=== PATIENT | male | born 2000 | race Hispanic/Latino ===

== ENCOUNTER 2020-03-05 10:58 | Emergency (ER) | payer SELFPAY ==
[~2020-03-05] VITALS: Ht 167.6 cm; Wt 90.7 kg
[~2020-03-05 10:58] MED LIST: BACITRACIN/POLYMYXIN 30 GM OINT TP SCH
[2020-03-05] MEDS ORDERED: LIDOCAINE HCL 1% LOCAL INJ 20 ML VIAL INJ ONE (11:15)
--- NOTE | 2020-03-05 12:08 | Diagnostic Imaging Report ---
Exam: Right hand radiographs - three views History: Laceration. Comparison: None. Findings: No evidence of acute fracture or dislocation. Mild soft tissue edema in the hand. There is a mild flexion deformity with mild volar subluxation of the small finger middle phalanx in relation to the proximal phalanx. Recommend clinical correlation. Signed by: Dr. Tim Valdez MD on 03/05/2020 12:05 PM
--- OUTSIDE RECORDS SUMMARY | 2020-03-05 13:20 | XMS REPORT | Continuity of Care Document ---
Author Author [facility] t Organization [facility] Address [address] [place] [id number] Phone Unavailable Care Team Providers Care Navigation Teacher Name Role Phone Lisa MCKEON Attphys Unavailable Problems This patient has no known problems. Allergies, Adverse Reactions, Alerts This patient has no known allergies or adverse reactions. Medications This patient has no known medications. Procedures This patient has no known procedures. Results Test Description Test Time Test Comments Results Result Comments Source HAND 3+ VIEWS LEFT 2020-03-05 12:02:00 [facility] 2000 Sex: M [place] [id number] Patient Name: UDAY SHAY MR #: [id number] : 2000 Age/Sex: 19/M Req #: [id number] [facility] Physician: Ordered by: CORY MCKEON MD Report #: [id number] Location: ER Room/Bed: Procedure: [id number] DX/HAND 3+ VIEWS LEFT Exam Date: 03/05/20 Exam Time: 1130 REPORT STATUS: Signed Exam: Right hand radiographs - three views History: Laceration. Comparison: None. Findings: No evidence of acute fracture or dislocation. Mild soft tissue edema in the hand. There is a mild flexion deformity with mild volar subluxation of the small finger middle phalanx in relation to the proximal phalanx. Recommend clinical correlation. Signed by: Dr. Desirae Guillen MD on 03/05/2020 12:05 PM Dictated By: DESIRAE GUILLEN MD 04 Transcribed By: JAVI on 03/05/201204 COPY TO: CORY MCKEON MD
--- NOTE | 2020-03-05 14:24 | Emergency Department Note ---
History of Present Illnes History of Present Illness Chief Complaint: Laceration History of Present Illness This is a 19 year old male LEFT THUMB LACERATION WITH KNIFE THAT HE WAS OPENING A BOX WITH, NO ACTIVE BLEEDING. ACCIDENTALLY CUT WITH KITCHEN KNIFE. 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 Any updates have been documented here. Past Medical History Recent Fever: No Clinical Suspicion of Infectio: No New/Unexplained Change in Ment: No Past Medical History: None Past Surgical History: None Other Surgery: UPPER LIP Social History Smoking Cessation: Current some day smoker Counseling Performed: No Alcohol Use: Social Any Illegal Drug Use: No TB Exposure/Symptoms: No Physically hurt or threatened: No Family History Family history of heart diseas: No Other Last Tetanus: UNK Any Pre-Existing Lines (PICC,: No Review of Systems Review of Systems Constitutional: Reports no symptoms EENTM: Reports no symptoms Cardiovascular: Reports no symptoms Respiratory: Reports no symptoms Gastrointestinal: Reports no symptoms Genitourinary: Reports no symptoms Musculoskeletal: Reports no symptoms Integumentary: Reports as per HPI Neurological: Reports no symptoms Psychological: Reports no symptoms Endocrine: Reports no symptoms Hematological/Lymphatic: Reports no symptoms Physical Exam Related Data Allergies: Coded Allergies: Pork/Porcine Containing Products (Verified Allergy, Unknown, 03/05/20) Uncoded Allergies: PORK (Allergy, Unknown, 03/05/20) Triage Vital Signs Vital Signs Date Time Temp Pulse Resp B/P (MAP) Pulse Ox O2 Delivery O2 Flow Rate FiO2 03/05/20 11:10 98.8 70 18 110/69 100 Room Air Vital signs reviewed: Yes Physical Exam CONSTITUTIONAL Constitutional: Present well-developed, Present well-nourished HENT HENT: Present normocephalic, Present atraumatic, Present oropharynx clear/moist, Present nose normal HENT L/R: Present left ext ear normal, Present right ext ear normal EYES Eyes: Reports PERRL, Reports conjunctivae normal NECK Neck: Present ROM normal PULMONARY Pulmonary: Present effort normal, Present breath sounds normal CARDIOVASCULAR Cardiovascular: Present regular rhythm, Present heart sounds normal, Present capillary refill normal, Present normal rate GASTROINTESTINAL Abdominal: Present soft, Present nontender, Present bowel sounds normal GENITOURINARY Genitourinary: Present exam deferred SKIN Skin: Present warm, Present dry, Present other (2.5 CM LAC TO PALMAR SURF OF LEFT THUMB JUST DISTAL TO CREASE AT DIP, N/V INTACT, TENDONS INTACT) MUSCULOSKELETAL Musculoskeletal: Present ROM normal NEUROLOGICAL Neurological: Present alert, Present oriented x 3, Present no gross motor or sensory deficits PSYCHOLOGICAL Psychological: Present mood/affect normal, Present judgement normal Results Imaging Imaging results reviewed: Yes Procedures Laceration Laceration: Laceration 1 Site: hand Side: left Size (cm): 2.5 Description: linear Depth: simple, single layer Local anesthesia: lidocaine 1% Amount of anesthesia (mL): 3 Pre-repair: wound exposed, irrigated extensively, deep structures intact Skin layer closed with: vicryl Size (cm): 4-0 Number of sutures: 6 Technique: simple, interrupted Assessment & Plan Medical Decision Making MDM LACERATION - XRAY R/O FB/BONE INVOLVEMENT, THEN SUTURE Reassessment Reassessment DC HOME, KEFLEX 500 TID X 10 DAYS, SUTURES OUT 7-10 DAYS, F/U MARIAM CALL SATURDAY Assessment & Plan Final Impression: (1) Thumb laceration Depart Disposition: HOME, SELF-CARE Last Vital Signs Date Time Temp Pulse Resp B/P (MAP) Pulse Ox O2 Delivery O2 Flow Rate FiO2 03/05/20 12:18 75 16 117/74 100 Room Air 03/05/20 11:10 98.8 Home Meds No Active Prescriptions or Reported Meds Medications in the ED Lidocaine HCl 20 ml ONCE ONCE INJ ; Start 03/05/20 at 11:15; Stop 03/05/20 at 11:16; Status DC Bacitracin/ Polymyxin B Sulfate DAILY TP ; Start 03/05/20 at 09:00; Stop 03/12/20 at 08:59 CORY MCKEON MD Mar 05, 2020 14:24
== END 2020-03-05 14:26 | disposition home or self-care (01) ==
LOC: ER 13:17
DX: S61.012A Laceration without foreign body of left thumb without damage to nail, initial encounter (principal); W26.0XXA Contact with knife, initial encounter; Y92.008 Other place in unspecified non-institutional (private) residence as the place of occurrence of the external cause; F17.210 Nicotine dependence, cigarettes, uncomplicated
CPT/HCPCS: 12001; 73130; 99284; J2001

== ENCOUNTER 2023-06-13 08:22 | Emergency (ER) | payer OTHER ==
[~2023-06-13] VITALS: Ht 167.6 cm; Wt 95.3 kg
[2023-06-13] MEDS: SODIUM CHLORIDE 0.9% 1000ML 1,000 ML IV STA (09:08)
[2023-06-13] MEDS ORDERED: SIMETHICONE 80 MG CHEW ONE (09:08)
[2023-06-13 09:09] LABS: BASOPHILS % 0.5 % (0.0-1.0); EOSINOPHILS # (AUTO) 0.1 (0.0-0.4); HEMATOCRIT 50.6 % (38.2-49.6); HEMOGLOBIN 16.7 g/dL (14.0-18.0); LYMPHOCYTES # (AUTO) 1.8 (1.0-3.2); MEAN CORPUSCULAR HEMOGLOBIN 29.6 pg (28-32); MEAN CORPUSCULAR VOLUME 89.6 fL (81-99); MONOCYTES # (AUTO) 0.5 (0.2-0.8); MONOCYTES % 7.6 % (4.4-11.3); NEUTROPHILS # (AUTO) 3.7 (2.1-6.9); NEUTROPHILS % 60.7 % (38.7-80.0); PLATELET COUNT 276 x10e3/uL (140-360); RED BLOOD COUNT 5.65 x10e6/uL (4.3-5.7); RED CELL DISTRIBUTION WIDTH 12.8 % (11.7-14.4); WHITE BLOOD COUNT 6.03 x10e3/uL (4.8-10.8)
[2023-06-13] MEDS: SIMETHICONE 80 MG CHEW PO PRN (09:10)
[2023-06-13] MEDS ORDERED: IOPAMIDOL 370 MG/ML 100 ML INFUS..BTL INJ ONE (09:11)
[2023-06-13] MEDS: DICYCLOMINE HCL 20 MG/2 ML VIAL IM ONE (09:13)
[2023-06-13 09:25] LABS: ALBUMIN 4.4 g/dL (3.5-5.0); ALBUMIN/GLOBULIN RATIO 1.4 (0.8-2.0); ANION GAP 12.1 mmol/L (8-16); BILIRUBIN,TOTAL 0.8 mg/dL (0.2-1.2); CALCIUM 9.7 mg/dL (8.4-10.2); CREATININE, SERUM 0.82 mg/dL (0.72-1.25); POTASSIUM 4.1 mmol/L (3.5-5.1); TOTAL PROTEIN 7.6 g/dL (6.5-8.1)
[2023-06-13] MEDS ORDERED: DICYCLOMINE HCL20 MG PO (10:27)
[2023-06-13 10:45] VITALS: BP 117/64; PULSE 72; RESP 16; O2SAT 100
== END 2023-06-13 10:57 | disposition home or self-care (01) ==
LOC: ER 08:29
DX: R10.32 Left lower quadrant pain (principal); K59.00 Constipation, unspecified
CPT/HCPCS: 36415; 74177; 80053; 83690; 85025; 99284; J7030; Q9967